=== PATIENT | male | born 1955 | race Asian ===

== ENCOUNTER 2019-04-28 08:36 | Day surgery (SDC) | payer BC ==
[2019-04-25 11:59] VITALS: BMI 26.6
[2019-04-28] MEDS ORDERED: Iothalamate Meglumine 60% 50 ML VIAL FS ONE (09:31)
[2019-04-28] MEDS ORDERED: Fentanyl 100 MCG/2 ML VIAL ONE (09:35)
[2019-04-28] MEDS ORDERED: Famotidine/PF 20 mg/2ml Vial ONE (09:35)
[2019-04-28 09:56] LABS: #Basophils 0.1 thou/uL (0.0-0.2); #Eosinphils 0.3 thou/uL (0.0-0.7); #Lymphocytes 2.4 thou/uL (1.20-3.40); #Monocytes 0.4 thou/uL (0.11-0.59); #Neutrophils 2.8 thou/uL (1.40-6.50); %Basophils 1.4 % (0.0-1.0); %Eosinophils 4.4 % (0.0-10.0); %Lymphocytes 40.1 % (21.0-51.0); %Monocytes 6.9 % (0.0-10.0); %Neutrophils 47.2 % (42.0-75.0); Hemoglobin 16.3 g/dL (14.0-18.0); Mean Corpuscular HGB CONC 33.5 g/dL (32.0-36.0); Mean Corpuscular Hemoglobin 28.5 pg (27.0-31.0); Mean Corpuscular Volume 84.9 fL (78.0-98.0); Mean Platelet Volume 9.9 fL (7.4-10.4); Platelet Count 203 thou/uL (130-400); RBC Distribution Width 11.9 % (11.5-14.5); Red Blood Cell (RBC) Count 5.71 mill/uL (4.70-6.10); White Blood Cell (WBC) Count 5.9 thou/uL (4.8-10.8)
[2019-04-28 10:04] LABS: INR-International Normal Ratio 0.9; Prothrombin Time 12.6 SEC (12.0-14.7)
[2019-04-28 10:05] LABS: PTT 27.2 SEC (22.9-36.1)
[2019-04-28 10:17] LABS: Sodium 139 mmol/L (136-145)
[2019-04-28 10:18] LABS: Anion Gap 13 mmol/L (10-20); BUN (Urea Nitrogen) 9 mg/dL (8.4-25.7); Calc. Creatinine Clearance 95 mL/min (70-130); Calcium 9.6 mg/dL (7.8-10.44); Carbon Dioxide 25 mmol/L (23-31); Chloride 106 mmol/L (98-107); Estimated GFR-MDRD 87; Glucose 102 mg/dL (80-115); Potassium 4.5 mmol/L (3.5-5.1)
--- NOTE | 2019-04-28 15:03 | OP ---
DATE OF PROCEDURE: 04/28/2019 PREOPERATIVE DIAGNOSES: Gross hematuria and bladder lesion. POSTOPERATIVE DIAGNOSES: Gross hematuria and bladder lesion. PROCEDURES PERFORMED: Cysto, bladder biopsy, and fulguration with destruction of a 1 x 1.5 cm area of flat abnormal mucosa on the left floor/posterior wall region. SPECIMEN REMOVED: Bladder biopsies x3. ESTIMATED BLOOD LOSS: Less than 25 mL. DRAINS: None. FINDINGS: There is no stricture disease. There was [id number] BPH. There was a lesion in the bladder, had no blood on it. At this time, it was not as easy to see and identify as it had been in the office. It was biopsied 3 times and then a Bugbee was used to cauterize the mucosa that was not completely removed with a biopsy and to obtain hemostasis. DESCRIPTION OF PROCEDURE: After obtained written and verbal consent from the patient, after receiving IV antibiotics, he was taken to the operating suite. He was placed in the supine position on the treatment table. PlexiPulses were placed on his lower extremities and turned on. He was given a general anesthetic and oral obturator intubation. He was placed in the dorsal lithotomy position, sterilely prepped and draped. Cystoscopy was performed with a 22-[place] sheath. This was well lubricated and passed under direct vision through the male urethra and into the urinary bladder with aid of a 30-degree lens and a video camera and monitor. The bladder was filled and emptied number of times as this was examined both the 30-degree lens and the 70-degree lens. I then used a cold cup biopsy forceps to biopsy 3 times this area and then used a Bugbee electrode to cauterize the biopsy sites as well as destroy the mucosa that still existed in this region. There was no significant bleeding. The bladder was drained. The instruments were removed. A Lopez catheter was not left indwelling. He was awakened, extubated, and taken by [place] [facility] to recovery room. Job ID: [id number]
== END 2019-04-28 12:00 | disposition home or self-care (01) ==
LOC: SDC 08:36
PROVIDERS: ATTEND Urology
PROC: 0T578ZZ Destruction of Left Ureter, Via Natural or Artificial Opening Endoscopic (ICD-10-PCS; principal; 2019-04-28)
PROC: 0T5B8ZZ Destruction of Bladder, Via Natural or Artificial Opening Endoscopic (ICD-10-PCS; principal; 2019-04-28)
DX: D49.4 Neoplasm of unspecified behavior of bladder (principal); R31.0 Gross hematuria; N40.0 Benign prostatic hyperplasia without lower urinary tract symptoms
CPT/HCPCS: 36415; 80048; 85025; 85610; 85730; 88305; 93005; 93010; J0131; J0690; J3010; S0028

== ENCOUNTER 2021-12-27 19:00 | Outpatient (CLI) | payer BC | END 2021-12-27 19:01 | disposition home or self-care (01) | LOC: SLEEPLAB 19:00 | PROVIDERS: ATTEND Internal Medicine | DX: G47.33 Obstructive sleep apnea (adult) (pediatric) (principal); G47.00 Insomnia, unspecified; G47.10 Hypersomnia, unspecified | CPT/HCPCS: 95810 ==

== ENCOUNTER 2022-02-12 19:00 | Outpatient (CLI) | payer BC | END 2022-02-12 19:01 | disposition home or self-care (01) | LOC: SLEEPLAB 19:00 | PROVIDERS: ATTEND Internal Medicine | DX: G47.33 Obstructive sleep apnea (adult) (pediatric) (principal); G47.00 Insomnia, unspecified; R06.83 Snoring; G47.10 Hypersomnia, unspecified; E66.9 Obesity, unspecified; Z68.26 Body mass index [BMI] 26.0-26.9, adult | CPT/HCPCS: 95811 ==